=== PATIENT | female | born 1930 | race Caucasian/White ===

== ENCOUNTER → 2016-07-09 | Outpatient (CLI) | payer MEDICARE, OTHER ==
[~2016-07-09] MED LIST: BENA40TA35 PO; FELO5TAB4 PO; GLIP-72 PO; HYDR-2164 PO; INSU100V27 SQ; LEVO75TA58 PO; LOVA40TA70 PO
== END ==
LOC: LABN 11:20
PROVIDERS: ATTEND Family Medicine
DX: R07.89 Other chest pain (principal)
CPT/HCPCS: 84484

== ENCOUNTER → 2016-07-10 | Outpatient (CLI) | payer MEDICARE, OTHER ==
--- NOTE | 2016-07-10 10:13 | DI ---
Indication: ITS.REASON: N18.4 Chronic kidney disease, stage 4 (severe) PROCEDURE: US RENAL: Encounter: Initial Comparison: None Technique: Grayscale and color Doppler sonographic imaging of both kidneys was performed. FINDINGS: Both kidneys are present with mild cortical loss and normal echogenicity. No evidence for collecting system dilatation, contour deforming mass, nephrolithiasis, or abnormal perinephric fluid collection. The right kidney measures 9.6 cm in length, and the left kidney measures 9.3 cm in length. Simple appearing 2.2 cm cyst on the right. IMPRESSION: Mild cortical thinning. No hydronephrosis. .
== END ==
LOC: IMA 09:16
PROVIDERS: ATTEND Internal Medicine Nephrology
DX: N18.4 Chronic kidney disease, stage 4 (severe) (principal)

== ENCOUNTER → 2016-07-14 | Outpatient (CLI) | payer MEDICARE, OTHER ==
[2016-07-14 15:19] LABS: ALBUMIN 3.6 G/DL (3.5-5.0); ALBUMIN/GLOBULIN RATIO 1.1 RATIO (1.1-2.2); ALKALINE PHOSPHATASE 118 U/L (38-126); ALT (SGPT) 27 U/L (9-52); ANION GAP 13 MEQ/L (5-15); AST (SGOT) 16 U/L (14-36); BUN/CREATININE RATIO 21 RATIO (6-26); CALCIUM 9.1 MG/DL (8.4-10.2); CHLORIDE 104 MEQ/L (98-107); CO2 - CARBON DIOXIDE 26 MEQ/L (22-30); CREATININE 2.2 MG/DL (0.7-1.2); GLOMERULAR FILTRATION RATE 21; GLUCOSE 148 MG/DL (65-110); POTASSIUM 4.1 MEQ/L (3.6-5); SODIUM 143 MEQ/L (134-144)
== END ==
LOC: LABN 15:01
PROVIDERS: ATTEND Family Medicine
DX: R61 Generalized hyperhidrosis (principal); R63.4 Abnormal weight loss
CPT/HCPCS: 80053